=== PATIENT | female | born 1935 | race Caucasian/White ===

== ENCOUNTER 2019-12-07 10:00 | Outpatient (CLI) | payer SELFPAY ==
[~2019-12-07 10:00] MED LIST: ALPR-384 PO; ASPI-771 PO; ATOR10TA70 PO; CALC-331 PO; CHOL10002 PO; ESOM40SU PO; EZET10TA6 PO; GUAI600T45 PO; LECI400C2 PO; LEVO75TA7 PO; MAGN400T28 PO; METO-539 PO; MULT-933 PO; OMEG300C3 PO; VITA80008 PO
== END 2019-12-07 23:59 | disposition home or self-care (01) ==
LOC: HW VAS 10:00
DX: Z13.6 Encounter for screening for cardiovascular disorders (principal)